=== PATIENT | female | born 1975 | race Caucasian/White ===

== ENCOUNTER → 2017-11-27 | Outpatient (CLI) | payer OTHER ==
[~2017-11-27] MED LIST: MUCINEX SINUS M; ZITHROMAX TRI-500 MG PO; ZYRTEC10 MG PO
== END | disposition home or self-care (01) ==
LOC: PPHC 15:23
DX: B34.9 Viral infection, unspecified (principal)

== ENCOUNTER 2017-11-30 14:55 | Outpatient (CLI) | payer OTHER | END 2017-11-30 15:44 | disposition home or self-care (01) | LOC: RAD 14:55 | DX: R05 Cough (principal) ==

== ENCOUNTER → 2017-11-30 | Outpatient (CLI) | payer OTHER | END | disposition home or self-care (01) | LOC: PPHC 13:50 | DX: J06.9 Acute upper respiratory infection, unspecified (principal) ==

== ENCOUNTER 2019-01-24 09:10 | Outpatient (CLI) | payer OTHER | END 2019-01-24 09:30 | disposition home or self-care (01) | LOC: MAMO-SONO 09:10 | DX: M54.5 Low back pain (principal); I10 Essential (primary) hypertension; Z01.810 Encounter for preprocedural cardiovascular examination; E03.8 Other specified hypothyroidism; E78.89 Other lipoprotein metabolism disorders; E11.51 Type 2 diabetes mellitus with diabetic peripheral angiopathy without gangrene; E55.9 Vitamin D deficiency, unspecified; E66.8 Other obesity; M89.8X8 Other specified disorders of bone, other site; E11.42 Type 2 diabetes mellitus with diabetic polyneuropathy; G62.89 Other specified polyneuropathies ==

== ENCOUNTER 2021-02-25 13:40 | Outpatient (CLI) | payer OTHER | END 2021-02-25 14:10 | disposition home or self-care (01) | LOC: MAMO-SONO 13:40 | PROVIDERS: ATTEND Specialist | DX: N60.11 Diffuse cystic mastopathy of right breast (principal); N60.12 Diffuse cystic mastopathy of left breast; Z12.31 Encounter for screening mammogram for malignant neoplasm of breast ==

== ENCOUNTER 2021-03-05 08:58 | Outpatient (CLI) | payer OTHER | END 2021-03-05 09:14 | disposition home or self-care (01) | LOC: RAD 08:58 | PROVIDERS: ATTEND Physical Medicine & Rehabilitation | DX: M54.5 Low back pain (principal); S99.29 Other physeal fracture of phalanx of toe; M79.672 Pain in left foot ==

== ENCOUNTER 2021-03-10 09:44 | Outpatient (CLI) | payer OTHER | END 2021-03-10 10:05 | disposition home or self-care (01) | LOC: MAMO-SONO 09:44 | PROVIDERS: ATTEND Specialist | DX: N64.59 Other signs and symptoms in breast (principal) ==

== ENCOUNTER → 2021-05-12 14:30 | Outpatient (CLI) | payer OTHER | END | disposition home or self-care (01) | LOC: PPH VACUNA 14:30 | PROVIDERS: ATTEND Emergency Medicine Pediatric Emergency Medicine | DX: Z23 Encounter for immunization (principal) ==

== ENCOUNTER 2021-06-10 13:08 | Outpatient (CLI) | payer OTHER | END 2021-06-10 13:16 | disposition home or self-care (01) | LOC: RAD 13:08 | PROVIDERS: ATTEND Physical Medicine & Rehabilitation | DX: M25.572 Pain in left ankle and joints of left foot (principal) ==

== ENCOUNTER 2021-08-10 07:57 | Outpatient (CLI) | payer OTHER | END 2021-08-10 08:07 | disposition home or self-care (01) | LOC: RAD 07:57 | DX: M99.01 Segmental and somatic dysfunction of cervical region (principal); M99.02 Segmental and somatic dysfunction of thoracic region; M99.03 Segmental and somatic dysfunction of lumbar region ==

== ENCOUNTER 2022-02-11 14:40 | Outpatient (CLI) | payer OTHER | END 2022-02-11 14:49 | disposition home or self-care (01) | LOC: RAD 14:40 | PROVIDERS: ATTEND Physical Medicine & Rehabilitation | DX: M54.50 Low back pain, unspecified (principal) ==

== ENCOUNTER 2023-08-03 07:34 | Emergency (ER) | payer OTHER ==
[~2023-08-03] VITALS: Ht 167.6 cm; Wt 95.3 kg
[2023-08-03] MEDS ORDERED: IBU800 MG PO (08:50)
== END 2023-08-03 08:57 | disposition home or self-care (01) ==
LOC: ER 07:35
DX: S01.521A Laceration with foreign body of lip, initial encounter (principal); W45.8XXA Other foreign body or object entering through skin, initial encounter; Y93.89 Activity, other specified; Y92.018 Other place in single-family (private) house as the place of occurrence of the external cause; Z88.0 Allergy status to penicillin; Z88.8 Allergy status to other drugs, medicaments and biological substances

== ENCOUNTER 2025-01-03 07:18 | Outpatient (CLI) | payer OTHER ==
[~2025-01-03 07:18] MED LIST changes: +IBU800 MG PO
== END 2025-01-03 07:39 | disposition home or self-care (01) ==
LOC: SONOGRAMA 07:18
DX: N93.8 Other specified abnormal uterine and vaginal bleeding (principal)

== ENCOUNTER 2025-01-28 07:18 | Outpatient (CLI) | payer OTHER | END 2025-01-28 07:26 | disposition home or self-care (01) | LOC: MRI 07:18 | DX: N83.01 Follicular cyst of right ovary (principal) | CPT/HCPCS: 72197 ==